=== PATIENT | female | born 1990 | race African-American/Black ===

== ENCOUNTER 2018-01-30 15:06 | Emergency (ER) | payer SELFPAY, OTHER ==
[2018-01-30 15:27] LABS: URINE HCG POC HCG POSITIVE (Negative)
[2018-01-30 15:48] LABS: BILIRUBIN,URINE NEGATIVE (NEG); CLARITY,URINE HAZY; COLOR,URINE YELLOW; GLUCOSE,URINE NEGATIVE (NEG); NITRITE,URINE NEGATIVE (NEG); PH,URINE 6.5; PROTEIN,URINE NEGATIVE (NEG-TRACE)
[2018-01-30 15:52] LABS: BACTERIA,URINE FEW /HPF (0-FEW); RBC,URINE 0 /HPF (0-2); SQUAMOUS EPITHELIAL CELL,UR MOD /LPF; TRICHOMONAS,URINE PRESENT
[2018-01-30] MEDS: metroNIDAZOLE 500 MG TABLET PO (16:31)
[2018-01-30] MEDS: AZITHROMYCIN 250 MG TABLET. PO (16:31)
[2018-01-30] MEDS: cefTRIAXone IM 250 MG VIAL IM (16:31)
== END 2018-01-30 16:49 | disposition home or self-care (01) ==
LOC: ER 15:06
DX: A59.9 Trichomoniasis, unspecified (principal); Z33.1 Pregnant state, incidental; F12.10 Cannabis abuse, uncomplicated; F10.20 Alcohol dependence, uncomplicated
CPT/HCPCS: 81001; 81025; 87086; 96372; 99284; J0696; Q0144

== ENCOUNTER 2018-02-15 15:58 | Emergency (ER) | payer OTHER ==
[2018-02-15 16:24] LABS: URINE HCG POC HCG POSITIVE (Negative)
[2018-02-15 16:34] LABS: ADD MAN DIFF? NO
[2018-02-15 16:37] LABS: BILIRUBIN,URINE NEGATIVE (NEG); CLARITY,URINE CLEAR; COLOR,URINE YELLOW; GLUCOSE,URINE NEGATIVE (NEG); NITRITE,URINE NEGATIVE (NEG); PH,URINE 5.5; PROTEIN,URINE NEGATIVE (NEG-TRACE)
[2018-02-15 16:38] LABS: BASO # 0.1 x10^3/uL (0.0-0.2); BASO % 1 % (0-3); EOS # 0.3 x10^3/uL (0.0-0.7); EOS % 3 % (0-3); HEMATOCRIT 39.9 % (36.0-47.0); HEMOGLOBIN 13.5 g/dL (12.0-15.5); LYMPH # 2.8 x10^3/uL (1.0-4.8); LYMPH % 26 % (24-48); MEAN CORPUSCULAR HEMOGLOBIN 28 pg (25-35); MEAN CORPUSCULAR HGB CONC 34 g/dL (31-37); MEAN CORPUSCULAR VOLUME 83 fL (79-100); MONO # 0.7 x10^3/uL (0.0-1.1); MONO % 7 % (0-9); NEUT # 7.1 x10^3uL (1.8-7.7); NEUT % 64 % (31-73); PLATELET COUNT 208 x10^3/uL (140-400); RED BLOOD COUNT 4.81 x10^6/uL (3.50-5.40); RED CELL DISTRIBUTION WIDTH 12.5 % (11.5-14.5); WHITE BLOOD COUNT 11.1 x10^3/uL (4.0-11.0)
[2018-02-15 16:44] LABS: BACTERIA,URINE FEW /HPF (0-FEW); RBC,URINE 0 /HPF (0-2); SQUAMOUS EPITHELIAL CELL,UR MANY /LPF
[2018-02-15 16:47] LABS: ANION GAP 9 (6-14); BLOOD UREA NITROGEN 12 mg/dL (7-20); CALCIUM 8.5 mg/dL (8.5-10.1); CARBON DIOXIDE 25 mmol/L (21-32); CHLORIDE 104 mmol/L (98-107); CREATININE 0.7 mg/dL (0.6-1.0); GFR 122.4; GLUCOSE 95 mg/dL (70-99); POTASSIUM 3.7 mmol/L (3.5-5.1); SODIUM 138 mmol/L (136-145)
[2018-02-15 16:53] LABS: ALBUMIN 3.6 g/dL (3.4-5.0); ALK PHOS 49 U/L (46-116); ALT (SGPT) 15 U/L (14-59); AST (SGOT) 12 U/L (15-37); DIRECT BILIRUBIN 0.2 mg/dL (0.0-0.2); LIPASE 117 U/L (73-393); TOTAL BILIRUBIN 0.9 mg/dL (0.2-1.0); TOTAL PROTEIN 7.4 g/dL (6.4-8.2)
[2018-02-15] MEDS ORDERED: SODIUM BICARB ADULT 8.4% 50 MEQ/50 ML DISP.SYRIN. IV (17:15)
[2018-02-15] MEDS ORDERED: MAGNESIUM SULFATE 2GM 50 ML IV (17:15)
== END 2018-02-15 18:35 | disposition home or self-care (01) ==
LOC: ER 15:58
DX: O26.891 Other specified pregnancy related conditions, first trimester (principal); M54.5 Low back pain; F10.10 Alcohol abuse, uncomplicated; F12.10 Cannabis abuse, uncomplicated; Z3A.01 Less than 8 weeks gestation of pregnancy
CPT/HCPCS: 36415; 76801; 80048; 80076; 81001; 81025; 83690; 84702; 85025; 86901; 87086; 99285-25

== ENCOUNTER 2020-07-05 15:56 | Emergency (ER) | payer BC, OTHER ==
[~2020-07-05] VITALS: Ht 167.6 cm; Wt 73.0 kg
[~2020-07-05 15:56] MED LIST: CEPH-263 PO; PREN1TAB58 PO; PROM25TA10 PO
[2020-07-05] MEDS ORDERED: IV NORMAL SALINE 1000ML BAG 1,000 ML IV SCH (18:21)
[2020-07-05] MEDS ORDERED: KETOROLAC 30 MG/ML VIAL. IVP ONE (18:30)
[2020-07-05] MEDS ORDERED: DEXAMETHASONE SOD PHOS 20 MG/5 ML VIAL. IV ONE (18:30)
[2020-07-05] MEDS ORDERED: ALBUTEROL SULFATE 2.5 MG/3 ML NEBU. NEB ONE (18:30)
[2020-07-05] MEDS ORDERED: ACETAMINOPHEN 500 MG TABLET PO ONE (18:30)
[2020-07-05] MEDS ORDERED: ONDANSETRON PF 4 MG/2 ML VIAL. IVP ONE (18:30)
[2020-07-05 18:37] LABS: BILIRUBIN,URINE SMALL (NEG); CLARITY,URINE TURBID; NITRITE,URINE NEGATIVE (NEG); PH,URINE 5.5 (<5.0-8.0); PROTEIN,URINE NEGATIVE (NEG-TRACE)
--- NOTE | 2020-07-05 18:37 | PHYS DOC ---
Past Medical History Past Medical History: Cancer Additional Past Medical Histor: ovarian Past Surgical History: Other Additional Past Surgical Histo: cervial biopsy,LEEP PROCEDURE Smoking Status: Current Every Day Smoker Alcohol Use: Heavy Drug Use: Marijuana General Adult EDM: Chief Complaint: COUGH HPI: HPI: Patient is a 29 year old female who presents with states that her 1-year-old had a cough after she got him back from his father's house. She states for the last 2 weeks she has had a cough, fever and coughing so hard that her chest hurts and is vomiting. Patient's temperature is 100.3 upon arrival. She has not taken any medications. She states that she has been taking Mucinex and Tylenol when needed. She states she cannot sleep because the cough is so bad. She states is also having headache and body aches. She states that she works at [email or web address] and is COVID tested every Friday. She states that when she is had the symptoms she is already think over tested once and it was negative. She states she has not heard back from her last COVID test this past Friday. Patient has a history of being a smoker M she has had ovarian cancer in the LEEP procedure. Patient denies dizziness, syncope, diarrhea, fatigue, numbness or tingling, abdominal pain, nausea, shortness of breath except for when coughing. Patient rates her headache and discomfort at a 7 out of 10. Review of Systems: Review of Systems: Constitutional: fever or chills. [] Eyes: Denies change in visual acuity. [] HENT: Denies nasal congestion. + sore throat. [] Respiratory: cough or shortness of breath. [] Cardiovascular: chest pain with cough or denies edema. [] GI: Denies abdominal pain, nausea. + vomiting with coughing, denies bloody stools or diarrhea. [] : Denies dysuria. [] Musculoskeletal: Denies back pain or joint pain. [] Integument: Denies rash. [] Neurologic: headache, denies focal weakness or sensory changes. [] Endocrine: Denies polyuria or polydipsia. [] Lymphatic: Denies swollen glands. [] Psychiatric: Denies depression or anxiety. [] Heart Score: Risk Factors: Risk Factors: DM, Current or recent (<one month) smoker, HTN, HLP, family history of CAD, obesity. Risk Scores: Score 0 - 3: 2.5% MACE over next 6 weeks - Discharge Home Score 4 - 6: 20.3% MACE over next 6 weeks - Admit for Clinical Observation Score 7 - 10: 72.7% MACE over next 6 weeks - Early Invasive Strategies Current Medications: Current Medications Medications (Trade) Dose Ordered Sig/Adriana Start Time Stop Time Status Last Admin Dose Admin Acetaminophen (Tylenol) 1,000 mg 1X ONCE 07/05/20 18:30 07/05/20 18:31 Albuterol Sulfate (Ventolin Neb Soln) 2.5 mg 1X ONCE 07/05/20 18:30 07/05/20 18:31 Dexamethasone Sodium Phosphate (Decadron) 10 mg 1X ONCE 07/05/20 18:30 07/05/20 18:31 Ketorolac Tromethamine (Toradol 30mg Vial) 30 mg 1X ONCE 07/05/20 18:30 07/05/20 18:31 Ondansetron HCl (Zofran) 4 mg 1X ONCE 07/05/20 18:30 07/05/20 18:31 Sodium Chloride 1,000 ml @ 1,000 mls/hr Q1H 07/05/20 18:21 07/05/20 19:20 Allergies: Allergies: Allergies Coded Allergies Type Severity Reaction Last Updated Verified No Known Drug Allergies 05/15/16 No Physical Exam: PE: Constitutional: Well developed, well nourished, no acute distress, non-toxic appearance. Febrile. [] HENT: Normocephalic, atraumatic, bilateral external ears normal, oropharynx moist, no oral exudates, nose normal. [] Eyes: PERRLA, EOMI, conjunctiva normal, no discharge. [] Neck: Normal range of motion, no tenderness, supple, no stridor. [] Cardiovascular:Heart rate regular rhythm, no murmur [] Lungs & Thorax: Bilateral breath sounds clear to auscultation [] Abdomen: Bowel sounds normal, soft, no tenderness, no masses, no pulsatile masses. [] Skin: Warm, dry, no erythema, no rash. [] Back: No tenderness, no CVA tenderness. [] Extremities: No tenderness, no cyanosis, no clubbing, ROM intact, no edema. [] Neurologic: Alert and oriented X 3, normal motor function, normal sensory function, no focal deficits noted. [] Psychologic: Affect normal, judgement normal, mood normal. [] Current Patient Data: Labs: Laboratory Tests Test 07/05/20 18:20 POC Urine HCG, Qualitative Hcg negative (Negative) EKG: EKG: [] Radiology/Procedures: Radiology/Procedures: [] Impression: [facility] [address] [place] [address] IMAGING REPORT Signed PATIENT: AYESHA BYRD SACCOUNT: [id number] : 1990 LOCATION: ER AGE: 29 SEX: F EXAM STATUS: REG ER ORD. PHYSICIAN: ALEX MOTA APRN REASON: COUGH PROCEDURE: PORTABLE CHEST 1V PORTABLE CHEST 1V History: Cough Comparison: None available Findings: Single view of the chest is submitted. There is no infiltrate, pneumothorax, or effusion. The pericardial cardiac silhouette is within normal limits in size. Impression: 1. There is no radiographic evidence of acute cardiopulmonary disease. Electronically signed by: Vikas Witt MD (07/05/2020 6:56 PM) [facility] DICTATED and SIGNED BY: VIKAS WITT MD DATE: 07/05/201855 Course & Med Decision Making: Course & Med Decision Making Pertinent Labs and Imaging studies reviewed. (See chart for details) COVID-19 CRITERIA: The patient was evaluated during the global COVID-19 pandemic, and that diagnosis was suspected/considered upon their initial presentation. Their evaluation, treatment and testing was consistent with current guidelines for patients who present with complaints or symptoms that may be related to COVID-19. See HPI. Abdomen is soft and nontender. Skin is pink warm and dry. Ambulatory with steady gait. No extremity edema. Speaks in full clear sentences. Alert and oriented x4. Lungs are clear to auscultation all lobes. Patient refusing CT abdomen pelvis and stating she wants to go home. [] Dragon Disclaimer: Dragon Disclaimer: This electronic medical record was generated, in whole or in part, using a voice recognition dictation system. COVID-19 Patient Risks: Age 65 or older: No Sign of co-morbidity: No Exp to person + for COVID: No Exp to PUI: No Travel from affected area: No Lower respiratory symptoms: Yes Fever: Yes Other: No PPE Use: Full PPE with N95 mask or PAPR: Yes Departure Departure Impression: Primary Impression: UTI (urinary tract infection) Qualified Codes: N39.0 - Urinary tract infection, site not specified Additional Impression: Vomiting Qualified Codes: R11.2 - Nausea with vomiting, unspecified Disposition: 07 AGAINST MEDICAL ADVICE Condition: STABLE Referrals: NO PCP (PCP) Patient Instructions: Urinary Tract Infection Additional Instructions: Follow up with primary care. Drink plenty of fluids and take antibiotics as prescribed. I can properly diagnose you due to refusing CT scan. There can be emergent diagnosis that I can not make and there is the possibility of severe illness, disability or even . Scripts Guaifenesin/Dextromethorphan (GUAIFENESIN DM SYRUP) 5 Ml Syrup 5 ML PO PRN Q6HRS PRN for COUGH for 4 Days, #80 ML Prov: ALEX MOTA APRN 07/05/20 Ondansetron (ONDANSETRON ODT) 4 Mg Tab.rapdis 1 TAB PO PRN Q6-8HRS, #16 TAB Prov: ALEX MOTA APRN 07/05/20 Cephalexin (KEFLEX) 500 Mg Capsule 1 CAP PO BID for 7 Days, #14 CAP 0 Refills Prov: ALEX MOTA APRN 07/05/20 Justicifation of Admission Dx: Justifications for Admission: Justification of Admission Dx: N/A ALEX MOTA APRN Jul 05, 2020 18:37
[2020-07-05 18:42] LABS: COLOR,URINE DK YELLOW; SQUAMOUS EPITHELIAL CELL,UR MANY /LPF
[2020-07-05 18:43] LABS: AMORPHOUS SEDIMENT,UR PRESENT /HPF
[2020-07-05 18:50] LABS: BARBITURATES NEG (NEG); BENZODIAZEPINES NEG (NEG); CANNABINOIDS POS (NEG); COCAINE NEG (NEG); METHADONE NEG (NEG); OPIATES NEG (NEG); PHENCYCLIDINE NEG (NEG)
[2020-07-05 18:54] LABS: AMPHETAMINE/METHAMPHETAMINE NEG (NEG)
[2020-07-05 18:56] LABS: BACTERIA,URINE MODERATE /HPF (0-FEW)
[2020-07-05 18:57] LABS: RBC,URINE 0 /HPF (0-2)
--- NOTE | 2020-07-05 18:59 | RAD ---
PORTABLE CHEST 1V History: Cough Comparison: None available Findings: Single view of the chest is submitted. There is no infiltrate, pneumothorax, or effusion. The pericardial cardiac silhouette is within normal limits in size. Impression: 1. There is no radiographic evidence of acute cardiopulmonary disease. Electronically signed by: Uday Garcia MD (07/05/2020 6:56 PM) [facility]
[2020-07-05 19:13] LABS: BASO # 0.1 x10^3/uL (0.0-0.2); BASO % 1 % (0-3); EOS # 0.1 x10^3/uL (0.0-0.7); EOS % 1 % (0-3); HEMATOCRIT 40.7 % (36.0-47.0); HEMOGLOBIN 14.2 g/dL (12.0-15.5); LYMPH # 1.9 x10^3/uL (1.0-4.8); LYMPH % 16 % (24-48); MEAN CORPUSCULAR HEMOGLOBIN 28 pg (25-35); MEAN CORPUSCULAR HGB CONC 35 g/dL (31-37); MEAN CORPUSCULAR VOLUME 81 fL (79-100); MONO # 0.9 x10^3/uL (0.0-1.1); MONO % 8 % (0-9); NEUT # 8.9 x10^3/uL (1.8-7.7); NEUT % 74 % (31-73); PLATELET COUNT 212 x10^3/uL (140-400); RED BLOOD COUNT 5.01 x10^6/uL (3.50-5.40); RED CELL DISTRIBUTION WIDTH 12.5 % (11.5-14.5); WHITE BLOOD COUNT 11.9 x10^3/uL (4.0-11.0)
[2020-07-05 19:21] LABS: CALCIUM 8.4 mg/dL (8.5-10.1); GFR 79.9; POTASSIUM 3.5 mmol/L (3.5-5.1)
[2020-07-05 19:22] LABS: PROTHROMBIN TIME PATIENT 13.3 SEC (11.7-14.0)
[2020-07-05 19:27] LABS: ALBUMIN 3.7 g/dL (3.4-5.0); ALBUMIN/GLOBULIN RATIO 0.9 (1.0-1.7); TOTAL BILIRUBIN 1.4 mg/dL (0.2-1.0); TOTAL PROTEIN 7.7 g/dL (6.4-8.2)
[2020-07-05] MEDS ORDERED: cefTRIAXone IV Push 1 GM VIAL. IVP ONE (19:30)
[2020-07-05] MEDS ORDERED: IV NORMAL SALINE 1000ML BAG 1,000 ML IV ONE (19:30)
[2020-07-05] MEDS ORDERED: fentaNYL PF VIAL 100 MCG/2 ML VIAL IVP ONE (19:30)
[2020-07-05] MEDS ORDERED: CONTRAST GIVEN. MC PRN (20:45)
[2020-07-05 21:00] VITALS: BP 112/67
[2020-07-05] MEDS ORDERED: IOHEXOL 300 MG/ML 100ML VIAL. IV ONE (21:00)
[2020-07-05] MEDS ORDERED: ONDA4TAB12 PO (21:42)
[2020-07-05] MEDS ORDERED: CEPH-264 PO (21:42)
[2020-07-05] MEDS ORDERED: BENZ100C PO (21:52)
[2020-07-05] MEDS ORDERED: GUAI5SYR PO (21:57)
--- NOTE | 2020-07-07 09:55 | NUR ---
IP: Informed pt of her negative COVID results. Pt verbalized understanding.
== END 2020-07-05 22:20 | disposition home or self-care (01) ==
LOC: ER 15:56
DX: N39.0 Urinary tract infection, site not specified (principal); R11.2 Nausea with vomiting, unspecified; Z20.828 Contact with and (suspected) exposure to other viral communicable diseases; F17.200 Nicotine dependence, unspecified, uncomplicated; F10.20 Alcohol dependence, uncomplicated; Y90.9 Presence of alcohol in blood, level not specified
CPT/HCPCS: 36415; 71045; 80053; 80307; 81001; 81025; 83690; 85025; 85610; 87070; 87086; 87880; 94640; 96361; 96374; 96375; 99285; J0696; J1100; J1885; J2405; J3010; J7030; U0003; J7613

== ENCOUNTER 2021-05-18 08:46 | Emergency (ER) | payer BC ==
[~2021-05-18] VITALS: Ht 167.6 cm; Wt 65.0 kg
[~2021-05-18 08:46] MED LIST changes: +BENZ100C PO; +CEPH-264 PO; +GUAI5SYR PO; +ONDA4TAB12 PO
[2021-05-18 09:01] VITALS: BP 132/75
[2021-05-18 10:06] LABS: BILIRUBIN,URINE NEGATIVE (NEG); CLARITY,URINE CLEAR; COLOR,URINE AMBER; NITRITE,URINE NEGATIVE (NEG); PROTEIN,URINE NEGATIVE (NEG-TRACE)
[2021-05-18 10:21] LABS: BACTERIA,URINE FEW /HPF (0-FEW); RBC,URINE OCC /HPF (0-2)
--- NOTE | 2021-05-18 10:35 | RAD ---
AP chest. HISTORY: Cough AP view was taken of the chest. Lungs are free of infiltrates. Heart is normal in size. There is no e ffusion. IMPRESSION: 1. No acute infiltrates. Electronically signed by: Bartolo Hernandez MD (05/18/2021 10:33 AM) [id number]
--- NOTE | 2021-05-18 10:41 | PHYS DOC ---
Past Medical History Past Medical History: Cancer Additional Past Medical Histor: "KIDNEY OR LIVER ISSUES BECAUSE I DRINK TOO MUCH." Past Surgical History: Other Additional Past Surgical Histo: CERVIX BIOPSY Smoking Status: Current Every Day Smoker Alcohol Use: Heavy Drug Use: Marijuana General Adult EDM: Chief Complaint: MULTIPLE COMPLAINTS HPI: HPI: Patient is a 30 year old female who presented to ER for evaluation of nonproductive cough for several weeks. Patient denies any fever. Patient denies being exposed to anybody who had coronavirus. Patient is not vaccinated for COVID-19. Patient also complained of foul-smelling vaginal discharge, pain with sexual intercourse. Patient denies abdominal pain, no fever, no nausea vomiting. Review of Systems: Review of Systems: Constitutional: Denies fever or chills. [] Eyes: Denies change in visual acuity. [] HENT: Denies nasal congestion or sore throat. [] Respiratory: Positive for cough, no trouble breathing Cardiovascular: Denies chest pain or edema. [] GI: Denies abdominal pain, nausea, vomiting, bloody stools or diarrhea. [] : Positive for vaginal discharge Musculoskeletal: Denies back pain or joint pain. [] Integument: Denies rash. [] Neurologic: Denies headache, focal weakness or sensory changes. [] Endocrine: Denies polyuria or polydipsia. [] Lymphatic: Denies swollen glands. [] Psychiatric: Denies depression or anxiety. [] Heart Score: C/O Chest Pain: N/A Risk Factors: Risk Factors: DM, Current or recent (<one month) smoker, HTN, HLP, family history of CAD, obesity. Risk Scores: Score 0 - 3: 2.5% MACE over next 6 weeks - Discharge Home Score 4 - 6: 20.3% MACE over next 6 weeks - Admit for Clinical Observation Score 7 - 10: 72.7% MACE over next 6 weeks - Early Invasive Strategies Allergies: Allergies: Allergies Coded Allergies Type Severity Reaction Last Updated Verified No Known Drug Allergies 05/15/16 No Physical Exam: PE: Constitutional: Well developed, well nourished, no acute distress, non-toxic appearance. [] HENT: Normocephalic, atraumatic, bilateral external ears normal, oropharynx moist, no oral exudates, nose normal. [] Eyes: PERRLA, EOMI, conjunctiva normal, no discharge. [] Neck: Normal range of motion, no tenderness, supple, no stridor. [] Cardiovascular:Heart rate regular rhythm, no murmur [] Lungs & Thorax: Bilateral breath sounds clear to auscultation [] Abdomen: Bowel sounds normal, soft, no tenderness, no masses, no pulsatile masses. [] Skin: Warm, dry, no erythema, no rash. [] Back: No tenderness, no CVA tenderness. [] Extremities: No tenderness, no cyanosis, no clubbing, ROM intact, no edema. [] Neurologic: Alert and oriented X 3, normal motor function, normal sensory function, no focal deficits noted. [] Psychologic: Affect normal, judgement normal, mood normal. [] Current Patient Data: Labs: Laboratory Tests Test 05/18/21 09:19 05/18/21 09:30 POC Urine HCG, Qualitative Hcg negative (Negative) Urine Collection Type Unknown Urine Color Mallorie Urine Clarity Clear Urine pH 6.0 (<5.0-8.0) Urine Specific [place] 1.025 (1.000-1.030) Urine Protein Negative mg/dL (NEG-TRACE) Urine Glucose (UA) Negative mg/dL (NEG) Urine Ketones (Stick) >=80 mg/dL (NEG) Urine Blood Negative (NEG) Urine Nitrite Negative (NEG) Urine Bilirubin Negative (NEG) Urine Urobilinogen Dipstick 1.0 mg/dL (0.2 mg/dL) Urine Leukocyte Esterase Moderate (NEG) Urine RBC Occ /HPF (0-2) Urine WBC 5-10 /HPF (0-4) Urine Squamous Epithelial Cells Many /LPF Urine Bacteria Few /HPF (0-FEW) Urine Mucus Mod /LPF Vital Signs: Vital Signs Date Time Temp Pulse Resp B/P (MAP) Pulse Ox O2 Delivery O2 Flow Rate FiO2 05/18/21 09:01 97.9 113 16 132/75 (82) 100 Room Air 97.9 EKG: EKG: [] Radiology/Procedures: Radiology/Procedures: [][facility] [address] [place] [address] IMAGING REPORT Signed PATIENT: AYESHA BYRD SACCOUNT: [id number] : 1990 LOCATION: ER AGE: 30 SEX: F EXAM STATUS: REG ER ORD. PHYSICIAN: YUDY DRISCOLL DO REASON: COUGH FOR TWO WEEKS PROCEDURE: CHEST AP ONLY AP chest. HISTORY: Cough AP view was taken of the chest. Lungs are free of infiltrates. Heart is normal in size. There is no effusion. IMPRESSION: 1. No acute infiltrates. Electronically signed by: Bartolo Dawson MD (05/18/2021 10:33 AM) [id number] DICTATED and SIGNED BY: BARTOLO DAWSON MD DATE: 05/18/21 [id number] Course & Med Decision Making: Course & Med Decision Making Pertinent Labs and Imaging studies reviewed. (See chart for details) [] Dragon Disclaimer: Dragon Disclaimer: This electronic medical record was generated, in whole or in part, using a voice recognition dictation system. Departure Departure Impression: Primary Impression: Bronchitis Additional Impressions: UTI (urinary tract infection) Vaginitis Disposition: HOME / SELF CARE / HOMELESS Condition: STABLE Referrals: NO PCP (PCP) Please follow up with [facility] this week. [address], [address] [place] [address] Phone number: [phone] Patient Instructions: Bronchitis, Urinary Tract Infection, Vaginitis, [id number] Additional Instructions: Thank you for visiting our Emergency Department. We appreciate you trusting us with your care. If any additional problems come up don't hesitate to return to visit us. Please follow up with your primary care provider so they can plan additional care if needed and know about the problem that you had. If symptoms worsen come back to the Emergency Department. Any concerning symptoms that start such as chest pain, shortness of air, weakness or numbness on one side of the body, running high fevers or any other concerning symptoms return to the ER. Scripts Cephalexin (CEPHALEXIN) 500 Mg Tablet 1 TAB PO QID for 5 Days, #20 TAB Prov: YUDY DRISCOLL DO 05/18/21 Metronidazole (FLAGYL) 500 Mg Tablet 1 TAB PO BID, #14 TAB Prov: YUDY DRISCOLL DO 05/18/21 YUDY DRISCOLL DO May 18, 2021 10:41
[2021-05-18] MEDS ORDERED: cefTRIAXone IM 500 MG VIAL. IM ONE (11:15)
[2021-05-18] MEDS ORDERED: AZITHROMYCIN 250 MG TABLET. PO ONE (11:15)
[2021-05-18] MEDS ORDERED: CEPH500T PO (11:17)
[2021-05-18] MEDS ORDERED: METR500T PO (11:17)
[2021-05-23 01:13] LABS: GC PROBE Negative (Negative)
== END 2021-05-18 11:36 | disposition home or self-care (01) ==
LOC: ER 08:46
DX: J40 Bronchitis, not specified as acute or chronic (principal); N39.0 Urinary tract infection, site not specified; N76.0 Acute vaginitis; F17.200 Nicotine dependence, unspecified, uncomplicated
CPT/HCPCS: 71045; 81001; 81025; 87086; 87491; 87591; 96372; 99284; J0696; Q0111

== ENCOUNTER 2021-10-07 07:56 | Emergency (ER) | payer OTHER ==
[~2021-10-07] VITALS: Ht 167.6 cm; Wt 59.8 kg
[~2021-10-07 07:56] MED LIST changes: +CEPH500T PO; +METR500T PO
[2021-10-07 08:38] LABS: BILIRUBIN,URINE NEGATIVE (NEG); CLARITY,URINE CLEAR; COLOR,URINE YELLOW; NITRITE,URINE NEGATIVE (NEG); PROTEIN,URINE NEGATIVE (NEG-TRACE)
[2021-10-07 09:03] LABS: BACTERIA,URINE 0 /HPF (0-FEW); RBC,URINE 0 /HPF (0-2); WBC,URINE OCC /HPF (0-4)
[2021-10-07] MEDS ORDERED: cefTRIAXone IM 500 MG VIAL. IM ONE (09:15)
[2021-10-07] MEDS ORDERED: AZITHROMYCIN 250 MG TABLET. PO ONE (09:15)
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
[2021-10-07] MEDS ORDERED: METR-34 PO (10:08)
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
[2021-10-07 10:45] VITALS: BP 104/65
[2021-10-07] MEDS ORDERED: ONDANSETRON ODT 4 MG TAB.RAPDIS. PO ONE (10:45)
[2021-10-08 13:10] LABS: GC PROBE Negative (Negative)
== END 2021-10-07 10:46 | disposition home or self-care (01) ==
LOC: ER 07:56
DX: O26.892 Other specified pregnancy related conditions, second trimester (principal); N76.0 Acute vaginitis; B96.89 Other specified bacterial agents as the cause of diseases classified elsewhere; Z3A.13 13 weeks gestation of pregnancy
CPT/HCPCS: 76801; 81001; 81025; 87491; 87591; 96372; 99284; J0696; Q0111

== ENCOUNTER 2022-03-01 15:23 | Observation (INO) | payer MEDICAID ==
[~2022-03-01 15:23] MED LIST changes: +METR-34 PO
[2022-03-01] MEDS ORDERED: IV RINGERS,LACTATED 1000ML 1,000 ML IV SCH (15:30)
[2022-03-01 16:06] LABS: BARBITURATES NEG (NEG); BENZODIAZEPINES NEG (NEG); CANNABINOIDS POS (NEG); COCAINE NEG (NEG); METHADONE NEG (NEG); OPIATES NEG (NEG); PHENCYCLIDINE NEG (NEG)
[2022-03-01 16:12] LABS: AMPHETAMINE/METHAMPHETAMINE NEG (NEG)
[2022-03-01 16:14] LABS: BACTERIA,URINE FEW /HPF (0-FEW); RBC,URINE 0 /HPF (0-2)
== END 2022-03-01 17:17 | disposition home or self-care (01) ==
LOC: 3 SO LND 15:23
PROVIDERS: ADMIT Obstetrics & Gynecology; ATTEND Obstetrics & Gynecology
DX: O62.9 Abnormality of forces of labor, unspecified (principal); Z3A.34 34 weeks gestation of pregnancy; Z79.899 Other long term (current) drug therapy
CPT/HCPCS: 59025; 80307; 81001; 87086; 96360; G0378; G0379; J7120